=== PATIENT | female | born 1970 | race Caucasian/White ===

== ENCOUNTER → 2020-03-22 13:58 | Outpatient (CLI) | payer OTHER, SELFPAY ==
--- NOTE | 2020-03-22 14:05 | DI.RAD.S_ITS ---
PROCEDURE: XR CHEST 2V INDICATIONS: HYPERTENSION/SHORTNESS OF BREATH TECHNIQUE: 2 views of the chest were acquired. COMPARISON: None. FINDINGS: Surgical changes and devices: None. Lungs and pleura: Lungs are clear. No pleural effusions or pneumothorax. Mediastinum: Mediastinal contours are normal. Heart size is normal. Bones and chest wall: No suspicious bony abnormalities. Soft tissues appear unremarkable. IMPRESSION: Mildly reduced inspiratory volume, suspect mild lung base atelectasis superimposed upon large body habitus causing mild blurring of the bronchovascular markings at each lower lobe. No definite pneumonia found. No cardiomegaly or CHF seen. Dictated by: Filipe Serrano M.D. on 03/22/2020 at 15:39 Approved by: Filipe Serrano M.D. on 03/22/2020 at 15:41
--- NOTE | 2020-03-22 14:06 | DI.ECHO.S_ITS ---
[facility] +---------+ : : [address] [place] : : : : [id number] : : : : Phone: [phone]+ Echocardiogram Report + + :Name: KARLEE ALBA Study Date: 03/22/2020 Height: 64 in : :[facility] Weight: 401 lb : : Gender: Female BSA: 2.6 m2 : :: 1970 Age: 49 yrs BP: 152/82 mmHg: :Reason For Study: HYPERTENSION : :Ordering Physician: JORGE LUIS, : :ROGERS Performed By: Emily Roach : :Referring: ROGERS REECE : + + Interpretation Summary Left ventricular wall thickness is mildly increased. The left ventricular ejection fraction is normal. Diastolic parameters suggest probable normal left ventricular diastolic function and normal filling pressures. The right ventricle is normal in size and function. Pulmonary artery pressures cannot be estimated because of the lack of a measurable TR jet velocity. Both atria are normal in size. No hemodynamically valvular abnormalities. Procedure: A two-dimensional transthoracic echocardiogram with color flow and Doppler was performed. The study quality was technically difficult. There is no prior echocardiogram noted for this patient. The patient was in sinus rhythm with heart rates between 65-75 bpm during the exam. Left Ventricle: The left ventricle is normal in size. Left ventricular wall thickness is mildly increased. The ejection fraction is estimated to be 60- 65%. The left ventricular ejection fraction is normal. There are no focal wall motion abnormalities. Diastolic parameters suggest probable normal left ventricular diastolic function and normal filling pressures. Right Ventricle: The right ventricle is normal in size and function. Atria: Both atria are normal in size. There is no Doppler evidence for an interatrial shunt. Mitral Valve: The mitral valve is normal in structure and function. There is no mitral regurgitation noted. Aortic Valve: The aortic valve is not well visualized. The aortic valve opens well. There is no aortic valve stenosis. No aortic regurgitation is present. Tricuspid Valve: The tricuspid valve is normal in structure and function. There is a trace or physiologic amount of tricuspid regurgitation. Pulmonary artery pressures cannot be estimated because of the lack of a measurable TR jet velocity. Pulmonic Valve: The pulmonic valve leaflets are thin and pliable; valve motion is normal. There is no pulmonic valvular regurgitation. Great Vessels: The aortic root is not well visualized. The ascending aorta is normal in size. The IVC is of normal diameter and collapses greater than 50% with a sniff. This suggests a low right atrial pressure of 3 mm Hg. Pericardium/ Pleura There is no pericardial effusion. There is no pleural effusion. MMode/2D Measurements & Calculations LVIDd: 4.6 cm LVOT diam: 2.0 cm LVIDs: 2.9 cm asc Aorta Diam: 3.1 cm FS: 35.8 % Ao Arch Diam (Prox Trans): 2.6 cm EPSS: 0.75 cm IVSd: 1.4 cm LVPWd: 0.80 cm LV jimenez. diameter/BSA (cm/m^2): 1.7 LV sys. diameter/BSA (cm/m^2): 1.1 LA A2 area: 19.4 cm2 RA long axis: 4.9 cm LA A4 area: 18.2 cm2 RA area: 19.1 cm2 LA length (vol): 5.4 cm RA vol: 63.1 ml LA vol: 55.5 ml RA : 24.0 ml/m2 LA vol index: 21.1 ml/m2 RVD1 (basal): 3.8 cm TAPSE: 2.7 cm Doppler Measurements & Calculations Ao V2 max: 157.6 cm/sec LVOT Max Akin: 141.2 cm/sec Ao V2 mean: 103.3 cm/sec LV V1 max P.0 mmHg Ao max P.9 mmHg LV V1 VTI: 28.9 cm Ao mean P.0 mmHg ANITHA(I,D): 3.5 cm2 Ao V2 VTI: 27.4 cm ANITHA(V,D): 3.0 cm2 sev ratio: 1.1 ANITHA indexed to BSA (cm^2/m^2): 1.3 MV E max akin: 120.1 cm/sec PA V2 max: 98.3 cm/sec MV A max akin: 88.3 cm/sec PA V2 mean: 71.4 cm/sec MV E/A: 1.4 PA mean P.3 mmHg Med Peak E' Akin: 10.8 cm/sec PA pr(Accel): 20.8 mmHg E/E' med: 11.1 Lat Peak E' Aikn: 11.0 cm/sec E/E' lat: 10.9 E/e' average: 11.0 MV dec time: 0.17 sec SV(LVOT): 95.3 ml Electronically signed by: Donny Mohan M.D. on Reading Physician:03/23/2020 11:59 AM
== END ==
PROVIDERS: Family Provider Family Medicine; PCP Family Medicine; Referring Provider Family Medicine; Visit Provider Family Medicine
DX: R06.02 Shortness of breath (principal); I10 Essential (primary) hypertension
CPT/HCPCS: 71046; 93306

== ENCOUNTER → 2021-01-19 13:49 | Outpatient (CLI) | payer OTHER, SELFPAY ==
--- NOTE | 2021-01-19 | DI.RAD.S_ITS ---
PROCEDURE: XR HAND LT MIN 3V INDICATIONS: LEFT HAND PAIN AND SWELLING TECHNIQUE: 3 views of the hand(s) acquired. COMPARISON: None. FINDINGS: Bones: No fractures or dislocations but there is a lobulated lucency within the midshaft of the 3rd proximal phalanx, thinning the cortex with endosteal scalloping.. Carpal bones are normally aligned. No suspicious bony lesions. Soft tissues: No suspicious soft tissue calcifications. IMPRESSION: Given the history of pain and swelling or mass follow-up MRI will with contrast likely is warranted given the lobulated lucencies present at the marrow space thinning the cortex of the 3rd proximal phalanx. Etiology is uncertain but there is relatively prominent focal cortical thinning seen on the oblique view. Dictated by: Filipe Serrano M.D. on 01/19/2021 at 15:01 Approved by: Filipe Serrano M.D. on 01/19/2021 at 15:02
== END ==
PROVIDERS: Family Provider Family Medicine; PCP Family Medicine; Referring Provider Nurse Practitioner Family; Visit Provider Nurse Practitioner Family
DX: M79.642 Pain in left hand (principal); M79.89 Other specified soft tissue disorders
CPT/HCPCS: 73130

== ENCOUNTER → 2021-02-02 13:40 | Outpatient (CLI) | payer OTHER, SELFPAY ==
--- NOTE | 2021-02-02 13:43 | DI.MRI.S_ITS ---
PROCEDURE: MR HAND LT WO CON INDICATIONS: LEFT HAND PAIN TECHNIQUE: Noncontrast coronal T1 spin echo and T2 fast spin echo with and without fat saturation, axial proton density fast spin echo and T2 fast spin echo with fat saturation, sagittal T1 spin echo and STIR through the hand and fingers. COMPARISON: [facility], CR, XR HAND LT MIN 3V, 01/19/2021, 13:52. FINDINGS: Image quality: Excellent. Bones: A lobular T2-hyperintense lesion is seen centered in the medullary cavity of the 3rd proximal phalanx with interspersed fat around the margins of the lesion and probable chondroid matrix. The lesion measures up to 28 x 8 x 5 mm in maximum dimensions. No surrounding osseous edema is seen. There is thinning of the overlying cortex. This corresponds to the previously seen lucency on radiographs from 01/19/2021. No additional intra osseous lesion is identified in the hand. The bones are normally aligned, without marrow contusions or fractures. Soft tissues: Visualized muscles demonstrate normal bulk and internal signal. No intramuscular masses identified. Mild tenosynovitis is seen involving the 2nd through 4th flexor tendons at the level of the metatarsal heads. A lobular ganglion cyst is seen at the volar radial aspect of the wrist measuring up to 16 mm in maximum dimension. IMPRESSION: 1. Nonaggressive-appearing intramedullary lesion in the 3rd proximal phalanx corresponds to the lucent lesion on prior radiographs from 01/19/2021. No associated osseous or soft tissue edema is seen. There is mild thinning of the overlying cortex that may put the patient at increased risk for pathologic fracture. 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 Given associated pain and endosteal scalloping, consider radiographic surveillance to exclude the less likely possibility of a low-grade chondrosarcoma. 2. Mild tenosynovitis of the 2nd through 4th flexor tendons at the level of the metacarpal heads. Dictated by: Jimmy Peña M.D. on 02/02/2021 at 14:59 Approved by: Jimmy Peña M.D. on 02/02/2021 at 15:16
== END ==
PROVIDERS: Family Provider Family Medicine; PCP Family Medicine; Referring Provider Nurse Practitioner Family; Visit Provider Nurse Practitioner Family
DX: M79.89 Other specified soft tissue disorders (principal); M79.642 Pain in left hand; M12.849 Other specific arthropathies, not elsewhere classified, unspecified hand; M89.9 Disorder of bone, unspecified
CPT/HCPCS: 73218

== ENCOUNTER → 2022-01-15 11:13 | Outpatient (CLI) | payer OTHER, SELFPAY ==
--- NOTE | 2022-01-15 | DI.MG.S_ITS ---
BILATERAL DIGITAL SCREENING MAMMOGRAM 3D/2D WITH CAD: 01/15/2022 CLINICAL: Routine screening. Comparison is made to exams dated: 02/17/2017 mammogram, 02/15/2016 ultrasound, 02/15/2016 mammogram - [facility], and 10/08/2013 mammogram - [facility]. The tissue of both breasts is predominantly fatty. Current study was also evaluated with a Computer Aided Detection (CAD) system. There are benign calcifications in the right breast. No significant masses, calcifications, or other findings are seen in either breast. There has been no significant interval change. IMPRESSION: BENIGN There is no mammographic evidence of malignancy. A 1 year screening mammogram is recommended. This exam was interpreted at Station ID: [id number]. NOTE: For mammograms, a report in lay terms will be sent to the patient. Approximately 15% of breast malignancies will not be visualized mammographically. In the management of a palpable breast mass, a negative mammogram must not discourage biopsy of a clinically suspicious lesion. Electronically Signed By: Kathrine huff/gogo:01/15/2022 12:42:38 letter sent: Normal Exam ACR BI-RADS Category 2: Benign Finding(s) 3342F
== END ==
PROVIDERS: Family Provider Family Medicine; PCP Family Medicine; Referring Provider Family Medicine; Visit Provider Family Medicine
DX: Z12.31 Encounter for screening mammogram for malignant neoplasm of breast (principal)
CPT/HCPCS: 77063; 77067

== ENCOUNTER → 2023-02-07 14:27 | Outpatient (CLI) | payer OTHER, SELFPAY ==
--- NOTE | 2023-02-07 | DI.RAD.S_ITS ---
PROCEDURE: XR CHEST 2V INDICATIONS: HTN, sleep apnea, pre-bariatric surgery TECHNIQUE: 2 views of the chest were acquired. COMPARISON: [facility], CR, XR CHEST 2V, 03/22/2020, 14:01. FINDINGS: Surgical changes and devices: None. Lungs and pleura: Lungs are clear. No pleural effusions or pneumothorax. Mediastinum: Mediastinal contours are normal. Heart size is normal. Bones and chest wall: No suspicious bony abnormalities. Soft tissues appear unremarkable. IMPRESSION: No evidence acute pulmonary process. Dictated by: Jamal Mcrae M.D. on 02/07/2023 at 15:26 Approved by: Jamal Mcrae M.D. on 02/07/2023 at 15:28
== END ==
PROVIDERS: Family Provider Family Medicine; PCP Family Medicine; Referring Provider Surgery; Visit Provider Surgery
DX: Z01.818 Encounter for other preprocedural examination (principal); G47.33 Obstructive sleep apnea (adult) (pediatric); I10 Essential (primary) hypertension; E66.01 Morbid (severe) obesity due to excess calories; Z68.44 Body mass index [BMI] 60.0-69.9, adult
CPT/HCPCS: 71046; 93005

== ENCOUNTER → 2024-01-29 13:24 | Outpatient (CLI) | payer OTHER, SELFPAY ==
--- NOTE | 2024-01-29 13:27 | DI.RAD.S_ITS ---
PROCEDURE: XR KNEE LT 1TO2V INDICATIONS: LEFT KNEE PAIN TECHNIQUE: 3 views of the knee were acquired. COMPARISON: [facility], , KNEE 3V LEFT, 04/03/2016, 13:26. FINDINGS: Bones: Progression of tricompartmental degenerative changes of the left knee with now moderate medial femorotibial compartment joint space narrowing and prominent marginal osteophytes the medial compartment. Progression of patellofemoral osteophytes. No acute fracture or dislocation. Soft tissues: Small joint effusion. No suspicious soft tissue calcifications. IMPRESSION: Left knee without acute fracture or dislocation. Interval progression of now moderate tricompartmental osteoarthrosis most severe in the medial femorotibial compartment. Small joint effusion. Dictated by: Abdullahi Villa M.D. on 01/29/2024 at 16:07 Approved by: Abdullahi Villa M.D. on 01/29/2024 at 16:08
== END ==
LOC: RAD 13:25
PROVIDERS: Family Provider Family Medicine; PCP Family Medicine; Referring Provider Registered Nurse; Visit Provider Registered Nurse
DX: M17.12 Unilateral primary osteoarthritis, left knee (principal); M25.562 Pain in left knee; M25.462 Effusion, left knee
CPT/HCPCS: 73560

== ENCOUNTER → 2024-03-12 15:47 | Outpatient (CLI) | payer OTHER, SELFPAY ==
--- NOTE | 2024-03-12 | DI.MG.S_ITS ---
BILATERAL DIGITAL SCREENING MAMMOGRAM 3D/2D WITH CAD: 03/12/2024 CLINICAL: Routine screening. Comparison is made to exams dated: 01/15/2022 mammogram, 02/17/2017 mammogram, and 02/15/2016 mammogram - [facility]. Both breasts are almost entirely fatty (category a/<25% glandular tissue). Current study was also evaluated with a Computer Aided Detection (CAD) system. There are benign calcifications in both breasts. No significant masses, calcifications, or other findings are seen in either breast. There has been no significant interval change. IMPRESSION: BENIGN There is no mammographic evidence of malignancy. A 1 year screening mammogram is recommended. Based on the Tyrer Cuzick model (a risk assessment model) the patient's lifetime risk is 4.8% and her 10 year risk is 1.2%. According to the ACR, ACS, and NCCN guidelines, an annual breast MRI exam along with mammogram is recommended if the patient's lifetime risk is 20% or greater. This exam was interpreted at Station ID: [id number]. NOTE: For mammograms, a report in lay terms will be sent to the patient. Approximately 15% of breast malignancies will not be visualized mammographically. In the management of a palpable breast mass, a negative mammogram must not discourage biopsy of a clinically suspicious lesion. Electronically Signed By: Abdullahi macias/gogo:03/12/2024 18:17:12 letter sent: Normal Exam ACR BI-RADS Category 2: Benign Finding(s) 3342F
== END ==
PROVIDERS: Family Provider Family Medicine; PCP Family Medicine; Referring Provider Family Medicine; Visit Provider Family Medicine
DX: Z12.31 Encounter for screening mammogram for malignant neoplasm of breast (principal); R92.313 Mammographic fatty tissue density, bilateral breasts
CPT/HCPCS: 77063; 77067

== ENCOUNTER → 2024-05-14 15:17 | Outpatient (CLI) | payer OTHER, SELFPAY ==
--- NOTE | 2024-05-14 15:19 | DI.US.S_ITS ---
PROCEDURE: US EXTREMITY NONVASC LOWER LT INDICATIONS: LEFT LEG MASS TECHNIQUE: Real-time scanning was performed of the left anterolateral distal thigh, with image documentation. COMPARISON: [facility], EXTREMITY NON-VASCULAR LTD, 12/27/2016, 16:05. FINDINGS: Under the area of concern, there is no sonographic evidence of a fluid collection or mass. IMPRESSION: No sonographic evidence of an underlying mass at the left anterior-lateral distal thigh. If there is persistent concern for an underlying mass, MRI of the femur with and without contrast would be recommended. Dictated by: Dennis Márquez M.D. on 05/15/2024 at 0:19 Approved by: Dennis Márquez M.D. on 05/15/2024 at 0:20
== END ==
LOC: US 15:18
PROVIDERS: Family Provider Family Medicine; PCP Family Medicine; Referring Provider Family Medicine; Visit Provider Family Medicine
DX: R22.42 Localized swelling, mass and lump, left lower limb (principal)
CPT/HCPCS: 76882

== ENCOUNTER → 2024-05-14 15:19 | Outpatient (CLI) | payer OTHER, SELFPAY ==
--- NOTE | 2024-05-14 15:23 | DI.RAD.S_ITS ---
PROCEDURE: XR CHEST 2V INDICATIONS: COVID 19 TECHNIQUE: 2 views of the chest were acquired. COMPARISON: [facility], CR, XR CHEST 2V, 02/07/2023, 14:32. FINDINGS: Heart, mediastinum and pulmonary vascular: Heart is normal in size and configuration. Mediastinum is unremarkable. Pulmonary vascular is normal. Lungs: Clear Pleural spaces: Normal-no effusions or pneumothorax. Bones and soft tissues: Normal IMPRESSION: Normal chest. Dictated by: Lan Berkowitz M.D. on 05/17/2024 at 7:43 Approved by: Lan Berkowitz M.D. on 05/17/2024 at 7:44
--- NOTE | 2024-05-14 15:54 | EKG_ITS ---
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
== END ==
LOC: RAD 15:21
PROVIDERS: Family Provider Family Medicine; PCP Family Medicine; Referring Provider Surgery; Visit Provider Surgery
DX: E66.01 Morbid (severe) obesity due to excess calories (principal); Z68.44 Body mass index [BMI] 60.0-69.9, adult; I1A.0 Resistant hypertension; G47.33 Obstructive sleep apnea (adult) (pediatric); U07.1 COVID-19; R22.42 Localized swelling, mass and lump, left lower limb
CPT/HCPCS: 71046; 76882; 93005

== ENCOUNTER → 2024-05-29 10:07 | Outpatient (CLI) | payer OTHER, SELFPAY ==
--- NOTE | 2024-05-29 10:08 | DI.MRI.S_ITS ---
PROCEDURE: MR FEMUR LT WO/W CON INDICATIONS: MASS THIGH AREA ABOVE THE KNEE TECHNIQUE: Noncontrast coronal T1 spin echo and STIR, sagittal T1 spin echo with fat saturation and STIR, axial T1 spin echo and T2 fast spin echo with fat saturation. After the administration of contrast, axial/sagittal/coronal T1 spin echo with fat saturation through the left femur. COMPARISON: None. FINDINGS: Image quality: Excellent. Bones: Moderate subchondral marrow edema in the medial compartment of the left knee, degenerative, incompletely evaluated. No acute fracture. No suspicious marrow replacing lesion. Soft tissues: There is small amount of fluid tracking along the superficial fascia of the anterolateral mid thigh, nonspecific. Muscles are normal in signal. No muscle edema or fatty atrophy. No soft tissue mass. No popliteal cyst. Please note a portion of the lateral aspect of the subcutaneous fat of the left thigh is excluded from field of view given patient large body habitus. IMPRESSION: 1. Please note a portion of the lateral aspect of the subcutaneous fat of the left thigh is excluded from field of view given patient large body habitus. 2. No suspicious mass in the left thigh. 3. Small amount of fluid tracking along the superficial fascia of the anterolateral left mid thigh, nonspecific. 4. Degenerative changes of the medial compartment of the left knee, incompletely evaluated. Dictated by: Areli Carey M.D. on 05/31/2024 at 11:01 Approved by: Areli Carey M.D. on 05/31/2024 at 11:10
== END ==
PROVIDERS: Family Provider Family Medicine; PCP Family Medicine; Referring Provider Family Medicine; Visit Provider Family Medicine
DX: R22.42 Localized swelling, mass and lump, left lower limb (principal)
CPT/HCPCS: 73720; A9579

== ENCOUNTER → 2024-07-10 10:46 | Outpatient (CLI) | payer OTHER, SELFPAY ==
--- NOTE | 2024-07-10 10:49 | DI.RAD.S_ITS ---
PROCEDURE: XR LUMBAR SPINE 2-3V INDICATIONS: BACK PAIN TECHNIQUE: 3 views of the lumbar spine were acquired. COMPARISON: None. FINDINGS: Bones: Slight rightward spinal curvature. Moderate degenerative changes. No traumatic subluxation. No acute vertebral body height loss. Trace anterolisthesis of L4 on L5, probably degenerative. Soft tissues: No suspicious calcifications. IMPRESSION: Moderate spondylosis. If there is high concern for further derangement, consider MRI evaluation. Trace anterolisthesis of L4 on L5 is probably degenerative. Dictated by: Jey Roland M.D. on 07/11/2024 at 9:08 Approved by: Jey Roland M.D. on 07/11/2024 at 9:09
== END ==
LOC: RAD 10:47
PROVIDERS: Family Provider Family Medicine; PCP Family Medicine; Referring Provider Family Medicine; Visit Provider Family Medicine
DX: M47.816 Spondylosis without myelopathy or radiculopathy, lumbar region (principal); M54.50 Low back pain, unspecified
CPT/HCPCS: 72100

== ENCOUNTER → 2025-01-26 15:40 | Outpatient (CLI) | payer OTHER, SELFPAY ==
--- NOTE | 2025-01-26 15:55 | EKG_ITS ---
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
== END ==
PROVIDERS: Family Provider Family Medicine; PCP Family Medicine; Referring Provider Surgery; Visit Provider Surgery
DX: E66.01 Morbid (severe) obesity due to excess calories (principal); I10 Essential (primary) hypertension; G47.33 Obstructive sleep apnea (adult) (pediatric)
CPT/HCPCS: 93005